=== PATIENT | female | born 1995 | race Caucasian/White ===

== ENCOUNTER 2018-02-04 21:32 | Inpatient (IN) | payer BC ==
[~2018-02-04] VITALS: Ht 154.9 cm; Wt 58.5 kg
[2018-02-04] MEDS ORDERED: IBUPROFEN 600 MG TAB PO STA (22:10)
[2018-02-04] MEDS ORDERED: CEFTRIAXONE SOD INJ 1 GM ADDVIAL IV STA (22:10)
[2018-02-04] MEDS ORDERED: SODIUM CHLORIDE 0.9% 1000ML 1,000 ML IV STA (22:10)
[2018-02-04 22:55] LABS: HEMOGLOBIN 13.5 g/dL (12.0-16.0); MEAN CELL VOLUME 85.7 fL (80-100); MEAN CORPUSCULAR HEMOGLOBIN 29.7 pg (25-34); MEAN CORPUSCULAR HGB CONC 34.6 g/dl (32-36); MEAN PLATELET VOLUME 8.9 fL (7.4-10.4); PLATELET COUNT 293 K/uL (130-400); RED CELL DISTRIBUTION WIDTH CV 12.7 % (11.5-14.5); RED CELL DISTRIBUTION WIDTH SD 40.1 fL (36.4-46.3); WHITE BLOOD COUNT 30.99 K/uL (4.8-10.8)
[2018-02-04 23:02] LABS: ALBUMIN 3.7 gm/dl (3.4-5.0); CREATININE 0.9 mg/dl (0.60-1.20); POTASSIUM 2.9 mmol/L (3.5-5.1)
[2018-02-04 23:04] LABS: TOTAL PROTEIN 7.7 gm/dl (6.4-8.2)
[2018-02-04] MEDS ORDERED: POTASSIUM CHLORIDE 10 MEQ TABCR PO STA (23:06)
--- NOTE | 2018-02-04 23:07 | DIAGNOSTIC IMAGING REPORT ---
ULTRASOUND KIDNEYS AND BLADDER CLINICAL HISTORY: Left flank pain. Urinary tract infection. COMPARISON STUDY: No priors. TECHNIQUE: Real-time, grayscale, and color flow sonography of the kidneys and bladder is performed. Images are reviewed in the transverse and longitudinal planes. FINDINGS: Kidneys: The kidneys are normal in size and echotexture. The right kidney measures 13.2 cm in length and the left kidney measures 13.1 cm in length. There is no hydronephrosis. No shadowing renal calculi are identified. There is no sonographic evidence of contour deforming renal mass lesion. No perinephric fluid is identified. Bladder: The bladder is partially decompressed and grossly normal in appearance. Only the left ureteral jet was seen. IMPRESSION: Unremarkable sonographic assessment of the kidneys and bladder. Electronically signed by: Prem Giordano M.D. 02/04/2018 11:05 PM Dictated Date/Time: 02/04/2018 11:04 PM
[2018-02-04 23:08] LABS: BASO ABS # 0.01 K/uL (0-0.2); IG# 0.15 K/uL (0.00-0.02); LYMPH % 2.7 %; LYMPH ABS # 0.85 K/uL (1.2-3.4); MONO % 11.2 %; MONO ABS # 3.47 K/uL (0.11-0.59); NEUT % 85.6 %; NEUT ABS # 26.51 K/uL (1.4-6.5)
[2018-02-04] MEDS ORDERED: MAGNESIUM SULFATE 1GM / D5W 1 GM BAG IV STA (23:29)
[2018-02-04] MEDS ORDERED: SERT50TA PO (23:52)
[2018-02-04] MEDS ORDERED: SERT-234 PO (23:53)
[2018-02-05] MEDS ORDERED: MAGNESIUM SULFATE 1GM / D5W 100 ML IV STA (01:08)
[2018-02-05] MEDS ORDERED: ALUMINUM/MAGNESIUM/SIMETH (MAALOX MAX) 30 ML UDC PO PRN (01:15)
[2018-02-05] MEDS ORDERED: POLYETHYLENE (MIRALAX) 17 GM PACK PO PRN (01:15)
[2018-02-05] MEDS ORDERED: HEPARIN SOD 5000 UNIT/0.5 ML CARP SQ SCH (01:15)
[2018-02-05] MEDS ORDERED: MAGNESIUM HYDROXIDE SUSP 30 ML UDC PO PRN (01:15)
[2018-02-05] MEDS ORDERED: ZOLPIDEM TARTRATE 5 MG TAB PO PRN (01:15)
--- NOTE | 2018-02-05 01:39 | History and Physical ---
History & Physical Date & Time of Service: Feb 05, 2018 at 01:20 Chief Complaint: Fever 102.9, Left Side Pain Primary Care Physician: [facility] History of Present Illness Source: patient 22 y/o F Hx depression/anxiety. The pt developed L flank pain one day ago in addition to dysuria and fevers. She describes nausea but denies vomiting. She eventually presented to the ER where a temp of 39.1 was confirmed. Initial labs were notable for hypokalemia, hypomagnesemia and a WBC count of 31. Past Medical/Surgical History 1) Depression Family History No pertinent family history Social History Social alcohol - does not smoke - [employer] student Smoking Status: Never Smoker Allergies Coded Allergies: No Known Allergies (Unverified , 02/04/18) Home Medications Scheduled Sertraline (Zoloft), 150 MG PO DAILY Review of Systems Constitutional: + fever, + sweats Eyes: No worsening of vision ENT: No hearing loss, No unusual epistaxis, No nasal symptoms Respiratory: No cough, No sputum, No wheezing Cardiovascular: No chest pain, No PND Abdomen: + nausea, No pain, No vomiting Musculoskeletal: No joint pain Genitourinary - Female: + dysuria, + problem reported (Flank pain as above) Neurologic: No memory loss Psychiatric: No depression symptoms Endocrine: No fatigue Hematologic / Lymphatic: No abnormal bleeding/bruising Integumentary: No rash Allergic / Immunologic: No environmental allergies Physical Exam Vital Signs Date Time Temp Pulse Resp B/P (MAP) Pulse Ox O2 Delivery O2 Flow Rate FiO2 02/04/18 21:35 39.1 146 18 111/72 96 Room Air General Appearance: WD/WN, no apparent distress Head: normocephalic Eyes: normal inspection ENT: normal ENT inspection, pharynx normal Neck: supple Respiratory/Chest: chest non-tender, lungs clear, normal breath sounds Cardiovascular: regular rate, rhythm, no edema Abdomen/GI: normal bowel sounds, non tender, soft Back: normal inspection, no CVA tenderness Extremities/Musculoskelatal: normal inspection, no calf tenderness, normal capillary refill 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, no motor/sensory deficits, alert, oriented x 3 Skin: normal color Diagnostics Laboratory Results Results Past 24 Hours Test 02/04/18 22:30 02/04/18 23:11 Range/Units White Blood Count 30.99 4.8-10.8 K/uL Red Blood Count 4.55 4.2-5.4 M/uL Hemoglobin 13.5 12.0-16.0 g/dL Hematocrit 39.0 37-47 % Mean Corpuscular Volume 85.7 80-100 fL Mean Corpuscular Hemoglobin 29.7 25-34 pg Mean Corpuscular Hemoglobin Concent 34.6 32-36 g/dl Platelet Count 293 130-400 K/uL Mean Platelet Volume 8.9 7.4-10.4 fL Neutrophils (%) (Auto) 85.6 % Lymphocytes (%) (Auto) 2.7 % Monocytes (%) (Auto) 11.2 % Eosinophils (%) (Auto) 0.0 % Basophils (%) (Auto) 0.0 % Neutrophils # (Auto) 26.51 1.4-6.5 K/uL Lymphocytes # (Auto) 0.85 1.2-3.4 K/uL Monocytes # (Auto) 3.47 0.11-0.59 K/uL Eosinophils # (Auto) 0.00 0-0.5 K/uL Basophils # (Auto) 0.01 0-0.2 K/uL RDW Standard Deviation 40.1 36.4-46.3 fL RDW Coefficient of Variation 12.7 11.5-14.5 % Immature Granulocyte % (Auto) 0.5 % Immature Granulocyte # (Auto) 0.15 0.00-0.02 K/uL Sodium Level 136 136-145 mmol/L Potassium Level 2.9 3.5-5.1 mmol/L Chloride Level 106 98-107 mmol/L Carbon Dioxide Level 22 21-32 mmol/L Anion Gap 8.0 3-11 mmol/L Blood Urea Nitrogen 8 7-18 mg/dl Creatinine 0.90 0.60-1.20 mg/dl Est Creatinine Clear Calc Drug Dose 80.2 ml/min Estimated GFR () 105.2 Estimated GFR (Non- 90.8 BUN/Creatinine Ratio 8.4 10-20 Random Glucose 144 70-99 mg/dl Calcium Level 9.0 8.5-10.1 mg/dl Magnesium Level 1.7 1.8-2.4 mg/dl Total Bilirubin 1.9 0.2-1 mg/dl Direct Bilirubin 0.3 0-0.2 mg/dl Aspartate Amino Transf (AST/SGOT) 10 15-37 U/L Alanine Aminotransferase (ALT/SGPT) 14 12-78 U/L Alkaline Phosphatase 57 45-117 U/L Total Protein 7.7 6.4-8.2 gm/dl Albumin 3.7 3.4-5.0 gm/dl Bedside Lactic Acid Venous 1.00 0.90-1.70 mmol/L Microbiology Results 02/04/18 Blood Culture, Received Pending 02/04/18 Blood Culture, Received Pending Diagnostic Radiology Renal US: Unremarkable sonographic assessment of the kidneys and bladder. Impression Assessment and Plan 22 y/o F Hx depression/anxiety. The pt developed L flank pain one day ago in addition to dysuria and fevers. She describes nausea but denies vomiting. She eventually presented to the ER where a temp of 39.1 was confirmed. Initial labs were notable for hypokalemia, hypomagnesemia and a WBC count of 31. 1) Pyelonephritis - high fever and impressive leukocytosis. Clinically her condition is fair and DC could be considered in the afternoon provided she is improving and tolerating PO. Culture results are pending. Placed on Ceftriaxone. 2) Hypokalemia, hypomag - repleted. Full code - SCDs Total time for this admit including review of labs, meds, imaging, records - discussion with pt and ER attending - 33 min VTE Prophylaxis Will order VTE Prophylaxis: Yes Reason for no VTE drug order: Treatment not indicated Reason no Mechanical VTE Order: Treatment not indicated
[2018-02-05] MEDS: POTASSIUM CHLR 10 MEQ / WTR 100 ML IV SCH ×2 (02:55→04:51)
[2018-02-05] MEDS: NSS + 20MEQ KCL 1000ML 1,000 ML IV SCH ×3 (02:56→12:55)
[2018-02-05 03:06] VITALS: BP 97/62; PULSE 111; TEMP 37.6; Ht 154.9 cm; Wt 58.5 kg
[2018-02-05] MEDS: ONDANSETRON INJ 2 MG/ML 2 ML VIAL IV PRN (05:12)
--- NOTE | 2018-02-05 05:13 | EMERGENCY ROOM VISIT NOTE ---
History First contact with patient: 22:02 Chief Complaint: FEVER Stated Complaint: PYELONEPHRITIS History of Present Illness The patient is a 22 year old female who presents to the Emergency Room with complaints of nausea, fever, urinary symptoms for the past few days who developed a fever today. No recent antibiotics. Patient denies chest pain, dyspnea, cough, congestion, vomiting, diarrhea, vaginal itching or discharge or risk for STI's. Patient is tolerating fluids but has a lack of appetite. Review of Systems An 10 system review of systems was completed with positives and pertinent negatives listed in the HPI. Past Medical/Surgical History Medical Problems: (1) Pyelonephritis Social History Smoking Status: Never Smoker Smokeless Tobacco Use: No Drug Use: none Marital Status: single Occupation Status: [employer] student Current/Historical Medications Scheduled Sertraline (Zoloft), 150 MG PO DAILY Physical Exam Vital Signs Date Time Temp Pulse Resp B/P (MAP) Pulse Ox O2 Delivery O2 Flow Rate FiO2 02/04/18 21:35 39.1 146 18 111/72 96 Room Air Physical Exam VITALS: Vitals are noted on the nurse's note and reviewed by myself. Vital signs febrile and tachycardic. GENERAL: Pleasant female, in no acute distress, nondiaphoretic, well-developed well-nourished. SKIN: The skin was without rashes, erythema, edema, or bruising. There is no tenting of the skin. Capillary reflex less than 2 seconds. HEAD: Normocephalic atraumatic. EARS: External auditory canals clear, tympanic membranes pearly moura without erythema or effusion bilaterally. EYES: Pupils equal round and reactive to light and accommodation. Conjunctivae without injection, sclerae without icterus. Extraocular movements intact. NOSE: Patent, turbinates without inflammation or discharge. MOUTH: Mucous membranes mildly dry. Pharynx without erythema or exudate. Uvula midline. Airway patent. Tongue does not deviate. NECK: Supple without nuchal rigidity. No lymphadenopathy. No thyromegaly. Cervical spine is nontender. No JVD. HEART: Regular rate and rhythm without murmurs gallops or rubs. LUNGS: Clear to auscultation bilaterally without wheezes, rales or rhonchi. No retractions or accessory muscle use. ABDOMEN: Positive bowel sounds x 4. Normal tympanic percussion. Soft, nontender, without masses or organomegaly. Castorena sign negative. No guarding or rebound tenderness. Left CVA tenderness MUSCULOSKELETAL: No muscle atrophy, erythema, or edema noted. NEURO: Patient was alert and oriented to person place and time. Normal sensation to light and sharp touch. No focal neurological deficits. Medical Decision & Procedures Laboratory Results 02/04/18 22:30 Red Blood Count 4.55, Mean Corpuscular Volume 85.7, Mean Corpuscular Hemoglobin 29.7, Mean Corpuscular Hemoglobin Concent 34.6, Mean Platelet Volume 8.9, Neutrophils (%) (Auto) 85.6, Lymphocytes (%) (Auto) 2.7, Monocytes (%) (Auto) 11.2, Eosinophils (%) (Auto) 0.0, Basophils (%) (Auto) 0.0, Neutrophils # (Auto ) 26.51, Lymphocytes # (Auto) 0.85, Monocytes # (Auto) 3.47, Eosinophils # (Auto ) 0.00, Basophils # (Auto) 0.01 02/04/18 22:30 Test 02/04/18 00:00 02/04/18 22:30 02/04/18 23:11 Urine Color YELLOW Urine Appearance CLOUDY (CLEAR) Urine pH 7.0 (4.5-7.5) Urine Specific [place] 1.008 (1.000-1.030) Urine Protein 1+ (NEG) Urine Glucose (UA) NEG (NEG) Urine Ketones TRACE (NEG) Urine Occult Blood 1+ (NEG) Urine Nitrite NEG (NEG) Urine Bilirubin NEG (NEG) Urine Urobilinogen NEG (NEG) Urine Leukocyte Esterase LARGE (NEG) Urine WBC (Auto) >30 /hpf (0-5) Urine RBC (Auto) 0-4 /hpf (0-4) Urine Hyaline Casts (Auto) 1-5 /lpf (0-5) Urine Epithelial Cells (Auto) >30 /lpf (0-5) Urine Bacteria (Auto) 2+ (NEG) Urine Test NEG (NEG) White Blood Count 30.99 K/uL (4.8-10.8) Red Blood Count 4.55 M/uL (4.2-5.4) Hemoglobin 13.5 g/dL (12.0-16.0) Hematocrit 39.0 % (37-47) Mean Corpuscular Volume 85.7 fL (80-100) Mean Corpuscular Hemoglobin 29.7 pg (25-34) Mean Corpuscular Hemoglobin Concent 34.6 g/dl (32-36) Platelet Count 293 K/uL (130-400) Mean Platelet Volume 8.9 fL (7.4-10.4) Neutrophils (%) (Auto) 85.6 % Lymphocytes (%) (Auto) 2.7 % Monocytes (%) (Auto) 11.2 % Eosinophils (%) (Auto) 0.0 % Basophils (%) (Auto) 0.0 % Neutrophils # (Auto) 26.51 K/uL (1.4-6.5) Lymphocytes # (Auto) 0.85 K/uL (1.2-3.4) Monocytes # (Auto) 3.47 K/uL (0.11-0.59) Eosinophils # (Auto) 0.00 K/uL (0-0.5) Basophils # (Auto) 0.01 K/uL (0-0.2) RDW Standard Deviation 40.1 fL (36.4-46.3) RDW Coefficient of Variation 12.7 % (11.5-14.5) Immature Granulocyte % (Auto) 0.5 % Immature Granulocyte # (Auto) 0.15 K/uL (0.00-0.02) Anion Gap 8.0 mmol/L (3-11) Est Creatinine Clear Calc Drug Dose 80.2 ml/min Estimated GFR () 105.2 Estimated GFR (Non- 90.8 BUN/Creatinine Ratio 8.4 (10-20) Calcium Level 9.0 mg/dl (8.5-10.1) Magnesium Level 1.7 mg/dl (1.8-2.4) Total Bilirubin 1.9 mg/dl (0.2-1) Direct Bilirubin 0.3 mg/dl (0-0.2) Aspartate Amino Transf (AST/SGOT) 10 U/L (15-37) Alanine Aminotransferase (ALT/SGPT) 14 U/L (12-78) Alkaline Phosphatase 57 U/L (45-117) Total Protein 7.7 gm/dl (6.4-8.2) Albumin 3.7 gm/dl (3.4-5.0) Bedside Lactic Acid Venous 1.00 mmol/L (0.90-1.70) Medications Administered Medications (Trade) Dose Ordered Sig/Terrance Route Start Time Stop Time Status Last Admin Dose Admin Ibuprofen (Motrin Tab) 600 mg NOW STAT PO 02/04/18 22:10 02/04/18 22:12 DC 02/04/18 22:28 600 MG Ceftriaxone Sodium (Rocephin Inj) 1 gm NOW STAT IV 02/04/18 22:10 02/04/18 22:12 DC 02/04/18 22:28 1 GM Sodium Chloride 1,000 ml @ 999 mls/hr Q1H1M STAT IV 02/04/18 22:10 02/04/18 23:10 DC 02/04/18 22:28 999 MLS/HR Potassium Chloride (Klor-Con M10) 40 meq NOW STAT PO 02/04/18 23:06 02/04/18 23:08 DC 02/04/18 23:25 40 MEQ Magnesium Sulfate (Magnesium Sulfate 1gm / D5W) 1 gm NOW STAT IV 02/04/18 23:29 02/04/18 23:30 DC 02/04/18 23:36 1 GM ED Course Prior records/ancillary studies reviewed. Triage Nursing notes reviewed. Additional history obtained from friends. The patient's history was concerning for fever. Differential diagnosis: Etiologies such as viral syndrome, otitis, pharyngitis, pneumonia, influenza, meningitis, urinary tract infection, sepsis, bacteremia, as well as others were entertained. Physical examination: Patient is alert and tolerating fluids ER treatment provided: IV fluids, Rocephin, Motrin, potassium, magnesium On reassessment the patient felt better. Diagnostics interpreted by me: The labs revealed leukocytosis of 31,000, hypokalemia, hypomagnesia, urine concerning for infection sent for culture. Negative hCG. Blood cultures pending. Lactic is 1 Imaging studies: Renal ultrasound negative for acute findings per stat radiology Consultation: A consultation was placed with hospitalist, Dr. Peoples. The case was discussed and diagnostics were reviewed. The patient was evaluated in the ER for further treatment. This appears to be consistent with pyelonephritis. Patient will be evaluated by medicine. She started on antibiotics. Urine culture was sent. Blood cultures pending. Her white count was 31,000. Fever was 39.3. She was not . She did not have acute abdomen on exam. By the evaluation outlined above emergent etiologies such as otitis, pharyngitis, pneumonia, meningitis, sepsis, bacteremia, as well as others were deemed relatively unlikely. The pt informed about the findings as listed above. All questions were answered and pleased with the treatment. Case reviewed with my attending The chart was completed utilizing [employer] Speech voice recognition software. Grammatical errors, random word insertions, pronoun errors, and incomplete sentences are an occassional consequence of this system due to software limitations, ambient noise, and hardware issues. Any formal questions or concerns about the content, text, or information contained within the body of this dictation should be directly addressed to the physician state tested nursing assistant for clarification. Medical Decision As above Medication Reconcilliation Current Medication List: was personally reviewed by me Blood Pressure Screening Patient's blood pressure: Normal blood pressure Impression Primary Impression: Pyelonephritis Additional Impression: SIRS (systemic inflammatory response syndrome) Departure Information Dispostion Admitted as an inpatient Condition GOOD Referrals [facility] (PCP) Forms HOME CARE DOCUMENTATION FORM, IMPORTANT VISIT INFORMATION Patient Instructions [facility] Problem Qualifiers
[2018-02-05 07:20] LABS: HEMATOCRIT 32.8 % (37-47); HEMOGLOBIN 11.1 g/dL (12.0-16.0); MEAN CELL VOLUME 87.2 fL (80-100); MEAN CORPUSCULAR HEMOGLOBIN 29.5 pg (25-34); MEAN CORPUSCULAR HGB CONC 33.8 g/dl (32-36); PLATELET COUNT 255 K/uL (130-400); RED CELL DISTRIBUTION WIDTH SD 41.6 fL (36.4-46.3); WHITE BLOOD COUNT 26.89 K/uL (4.8-10.8)
[2018-02-05] MEDS: SERTRALINE HCL 100 MG TAB PO SCH (07:59)
[2018-02-05 08:08] LABS: CALCIUM 7.6 mg/dl (8.5-10.1); CREATININE 0.97 mg/dl (0.60-1.20); POTASSIUM 3.6 mmol/L (3.5-5.1)
[2018-02-05 08:22] VITALS: BP 94/62; PULSE 98; TEMP 37.1; O2SAT 96
[2018-02-05 12:55] VITALS: TEMP 37.9
[2018-02-05] MEDS: ACETAMINOPHEN 325 MG TAB PO PRN ×2 (12:55→20:42)
--- NOTE | 2018-02-05 15:06 | Family Medicine Progress Note ---
Progress Note Date of Service Feb 05, 2018. Subjective No overnight events. Pt is tolerating antibiotic therapy well also IV fluids. Parents are at bedside, discussed extensively patient's improving clinical status having come in meeting sepsis criteria with pyelonephritis as focus of infection. Pt concerned about her finals upcoming. Discussed need for continued monitoring. Pt's mother also endorsed a history of repaired atrial septal defect and concern for cardiac complication. Pt no longer receives regular follow up for this, but does take antibiotic ppx before dental procedures. Pt denies chest pain, difficulty breathing, headache, diarrhea, lightheadedness. Does endorse mild left flank pain, but states overall she feels much better. ROS See HPI for pertinent positives and negatives. Objective Physical Exam Notes: GENERAL: Awake, alert, well-appearing, in no distress HENT: Normocephalic, atraumatic. EYES: Normal conjunctiva. Sclera non-icteric. NECK: Supple. FROM. No JVD. RESPIRATORY: Clear to auscultation. CARDIAC: Regular rate, normal rhythm. Extremities warm and well perfused. Pulses equal. ABDOMEN: Soft, non-distended. Mild tenderness to palpation over left flank. No rebound or guarding. No masses. LOWER EXTREMITIES: Calves are equal size bilaterally and non-tender. No edema. No discoloration. NEURO: No motor deficits noted. SKIN: No rash or jaundice noted. Assessment and Plan 22F here for management of sepsis and pyelonephritis with PMH of depression/ anxiety Assessment 1. Sepsis 2. Pyelonephritis 3. Anxiety/depression 4. Hypokalemia, hypomagnesemia Plan 1. 2 doses of Rocephin will be completed tonight. Ordered to start Cipro 500mg BID tomorrow for a total treatment of 14 days. 2. Continue hydration fluids NSS + 20 meq K @ 100ml/hr. 3. Continue Zoloft 150mg daily. 4. Replete elytes. VTE PPX: Heparin 5000units SQ q12h Dispo: Follow up with Dr. Princess Pacheco in [facility] will be arranged for next week. Current Inpatient Medications Medications (Trade) Dose Ordered Sig/Terrance Route Start Time Stop Time Status Last Admin Dose Admin Ceftriaxone Sodium 1 gm/ Dextrose 50 ml @ 100 mls/hr Q24H IV 02/05/18 22:00 02/14/18 21:59 Acetaminophen (Tylenol Tab) 650 mg Q4H PRN PO 02/05/18 01:15 03/07/18 01:14 02/05/18 12:55 650 MG Al Hydrox/Mg Hydrox/Simethicone (Maalox Max Susp) 15 ml Q4H PRN PO 02/05/18 01:15 03/07/18 01:14 Magnesium Hydroxide (Milk Of Magnesia Susp) 30 ml Q6H PRN PO 02/05/18 01:15 03/07/18 01:14 Polyethylene (Miralax Powder Packet) 17 gm DAILY PRN PO 02/05/18 01:15 03/07/18 01:14 Zolpidem Tartrate (Ambien Tab) 5 mg HSZ PRN PO 02/05/18 01:15 03/07/18 01:14 Ondansetron HCl (Zofran Inj) 4 mg Q6H PRN IV 02/05/18 01:15 03/07/18 01:14 02/05/18 05:12 4 MG Potassium Chloride/Sodium Chloride 1,000 ml @ 100 mls/hr Q10H IV 02/05/18 02:30 02/05/18 17:53 02/05/18 12:55 100 MLS/HR Sertraline HCl (Zoloft Tab) 150 mg DAILY PO 02/05/18 09:00 03/07/18 08:59 02/05/18 07:59 150 MG Ciprofloxacin (Cipro Tab) 500 mg BID PO 02/06/18 09:00 02/16/18 08:59 Date Time Temp Pulse Resp B/P (MAP) Pulse Ox O2 Delivery O2 Flow Rate FiO2 02/05/18 16:25 37.3 104 20 93/59 (70) 96 Room Air 02/05/18 12:55 37.9 02/05/18 08:22 37.1 98 18 94/62 (73) 96 02/05/18 08:00 Room Air 02/05/18 03:06 37.6 111 18 97/62 Room Air 02/05/18 01:28 37.2 113 18 113/63 97 Room Air 02/04/18 21:35 39.1 146 18 111/72 96 Room Air 02/05/18 07:10 02/05/18 07:10 Test 02/04/18 22:30 02/04/18 23:11 02/05/18 07:10 Immature Granulocyte % (Auto) 0.5 % White Blood Count 30.99 K/uL (4.8-10.8) Red Blood Count 4.55 M/uL (4.2-5.4) 3.76 M/uL (4.2-5.4) Hemoglobin 13.5 g/dL (12.0-16.0) Hematocrit 39.0 % (37-47) Mean Corpuscular Volume 85.7 fL (80-100) 87.2 fL (80-100) Mean Corpuscular Hemoglobin 29.7 pg (25-34) 29.5 pg (25-34) Mean Corpuscular Hemoglobin Concent 34.6 g/dl (32-36) 33.8 g/dl (32-36) Platelet Count 293 K/uL (130-400) Mean Platelet Volume 8.9 fL (7.4-10.4) 9.0 fL (7.4-10.4) Neutrophils (%) (Auto) 85.6 % Lymphocytes (%) (Auto) 2.7 % Monocytes (%) (Auto) 11.2 % Eosinophils (%) (Auto) 0.0 % Basophils (%) (Auto) 0.0 % Neutrophils # (Auto) 26.51 K/uL (1.4-6.5) Lymphocytes # (Auto) 0.85 K/uL (1.2-3.4) Monocytes # (Auto) 3.47 K/uL (0.11-0.59) Eosinophils # (Auto) 0.00 K/uL (0-0.5) Basophils # (Auto) 0.01 K/uL (0-0.2) Immature Granulocyte # (Auto) 0.15 K/uL (0.00-0.02) Total Bilirubin 1.9 mg/dl (0.2-1) Direct Bilirubin 0.3 mg/dl (0-0.2) Aspartate Amino Transf (AST/SGOT) 10 U/L (15-37) Alanine Aminotransferase (ALT/SGPT) 14 U/L (12-78) Alkaline Phosphatase 57 U/L (45-117) Total Protein 7.7 gm/dl (6.4-8.2) Albumin 3.7 gm/dl (3.4-5.0) Bedside Lactic Acid Venous 1.00 mmol/L (0.90-1.70) RDW Standard Deviation 41.6 fL (36.4-46.3) RDW Coefficient of Variation 13.0 % (11.5-14.5) Anion Gap 5.0 mmol/L (3-11) Est Creatinine Clear Calc Drug Dose 74.8 ml/min Estimated GFR () 96.1 Estimated GFR (Non- 82.9 BUN/Creatinine Ratio 9.1 (10-20) Calcium Level 7.6 mg/dl (8.5-10.1) Magnesium Level 2.1 mg/dl (1.8-2.4) Continued [facility] stay due to: multiple IV medications needed Discharge planning: home Resident Tracking Resident Involvement: Resident Care Provided Care Provided: Adult Hospital Medicine Assessment/Plan Resident Physician Supervision Note: I was present with Dr. Pacheco during the history and exam. I discussed the case with the resident and agree with the findings and plan as documented in the note. Any exceptions or clarifications are listed here: Pt reports considerable improvement in malaise and flank pain which is now described as mild, and has been afebrile since last evening (2100). Discussed briefly ramifications of admission on academics (finals week) and will provide documentation if needed. Would continue IV abx one more day and transition to PO cipro in AM, as cultures should be back then as well.
[2018-02-05 16:25] VITALS: BP 93/59; PULSE 104; TEMP 37.3; O2SAT 96
[2018-02-05 20:32] VITALS: BP 85/45; PULSE 114; TEMP 39; O2SAT 97
[2018-02-05] MEDS ORDERED: SODIUM CHLORIDE 0.9% 1000ML 1,000 ML IV SCH (21:15)
[2018-02-05] MEDS ORDERED: CEFTRIAXONE SOD INJ 1 GM in DEXTROSE 5% ADD-VANTAGE 50ML 50 ML IV SCH (22:00)
[2018-02-05 23:16] VITALS: BP 95/57; PULSE 112; TEMP 38.1; O2SAT 97
[2018-02-06] VITALS (12 sets, daily range): BP systolic 85–112; BP diastolic 47–73; PULSE 97–110; TEMP 37.3–38.6; O2SAT 91–97
[2018-02-06] MEDS: ACETAMINOPHEN 325 MG TAB PO PRN ×3 (00:54→13:20)
[2018-02-06] MEDS: CIPROFLOXACIN 500 MG TAB PO SCH ×2 (07:30→18:12)
[2018-02-06] MEDS: SERTRALINE HCL 100 MG TAB PO SCH (07:30)
[2018-02-06 07:51] LABS: BASO % 0.1 %; BASO ABS # 0.01 K/uL (0-0.2); HEMOGLOBIN 10.7 g/dL (12.0-16.0); IG# 0.04 K/uL (0.00-0.02); LYMPH % 6.6 %; LYMPH ABS # 1.02 K/uL (1.2-3.4); MEAN CELL VOLUME 87.4 fL (80-100); MEAN CORPUSCULAR HEMOGLOBIN 29.2 pg (25-34); MEAN CORPUSCULAR HGB CONC 33.4 g/dl (32-36); MEAN PLATELET VOLUME 9.2 fL (7.4-10.4); MONO % 10.6 %; MONO ABS # 1.64 K/uL (0.11-0.59); NEUT % 82.4 %; NEUT ABS # 12.83 K/uL (1.4-6.5); PLATELET COUNT 248 K/uL (130-400); RED CELL DISTRIBUTION WIDTH CV 13.2 % (11.5-14.5); RED CELL DISTRIBUTION WIDTH SD 42.7 fL (36.4-46.3); WHITE BLOOD COUNT 15.54 K/uL (4.8-10.8)
[2018-02-06 08:00] LABS: ALBUMIN 2.4 gm/dl (3.4-5.0); CALCIUM 7.8 mg/dl (8.5-10.1); CREATININE 0.63 mg/dl (0.60-1.20); POTASSIUM 3.8 mmol/L (3.5-5.1); TOTAL PROTEIN 5.9 gm/dl (6.4-8.2)
[2018-02-06] MEDS ORDERED: NSS + 20MEQ KCL 1000ML 1,000 ML IV SCH (10:00)
--- NOTE | 2018-02-06 10:41 | Family Medicine Progress Note ---
Progress Note Date of Service Feb 06, 2018. Subjective Febrile up to 39 overnight, responded to tylenol. Fluids restarted. Pt denies any pain in abdomen, ambulating without lightheadedness. Occasional headache when she stands up, but that subsides within minutes. No dysuria. Resident Tracking Resident Involvement: Resident Care Provided Care Provided: [facility] Assessment/Plan Resident Physician Supervision Note: I was present with Dr. Pacheco during the history and exam. I discussed the case with the resident and agree with the findings and plan as documented in the note. Any exceptions or clarifications are listed here: Pt states that she is feeling more fatigued today, and that she is more nauseated than last night. That said, she also states that she has less pain in the flank and no abdominal pain. She has been complaining of intermittent fever/ chills improved w/ tylenol. Family is somewhat uncomfortable with her going back to her apartment (roommates only) tonight while she is unwell, but is willing if she passes PO trial w/ zofran and can ambulate around the room. Will trial the former with dinner and dispo either tonight or tomorrow.
[2018-02-06] MEDS: ONDANSETRON INJ 2 MG/ML 2 ML VIAL IV PRN (15:56)
[2018-02-06] MEDS ORDERED: ACETAMINOPHEN 500 MG TAB PO PRN (17:00)
[2018-02-06] MEDS ORDERED: CPR500 PO (18:30)
--- NOTE | 2018-02-06 18:35 | Discharge Instructions ---
Discharge Instructions Date of Service Feb 06, 2018. Admission Reason for Admission: Pyelonephritis Discharge Discharge Diagnosis / Problem: Pyelonephritis Discharge Goals Goal(s): Decrease discomfort, Improve function, Increase independence, Improve disease control, Therapeutic intervention Activity Recommendations Activity Limitations: per Instructions/Follow-up section . Instructions / Follow-Up Instructions / Follow-Up You were admitted due to an infection in your kidneys called pyelonephritis. We started you on antibiotics as well as IV fluids and tylenol for your fever.. Should you have a fever temperature >101, please take tylenol. Please do not take more than the maximum dose, as labeled on the bottle. Do not take anymore tylenol TODAY. You can recheck a temperature tomorrow. Remember that fevers are your body's natural response to healing, so treat only if >101 degrees. Continue your tablet antibiotic ciprofloxacin for 5 more days. This has been sent to your pharmacy. Please stay home, rest, and drink plenty of fluids, which in your case is 65 ounces of water daily. Please follow up with your primary care provider in 3-4 days from discharge. You are welcome to follow up with me in the office any time as well. Be well A Tara Current Hospital Diet Patient's current hospital diet: Regular Diet Discharge Diet Recommended Diet: Regular Diet Pending Studies Studies pending at discharge: yes List of pending studies: E coli sensitivities Medical Emergencies . Who to Call and When: Medical Emergencies: If at any time you feel your situation is an emergency, please call 911 immediately. . Non-Emergent Contact Non-Emergency issues call your: Primary Care Provider . . "Provider Documentation" section prepared by Princess Pacheco. .
--- NOTE | 2018-02-06 18:47 | Discharge Summary ---
Discharge Summary Date of Service Feb 06, 2018. Discharge Summary Admission Date: Feb 05, 2018 at 01:16 Discharge Date: Feb 06, 2018 Discharge Disposition: Home Principal Diagnosis: Pyelonephritis Problems/Secondary Diagnoses: Sepsis Medication Reconciliation New Medications: Ciprofloxacin (Ciprofloxacin HCl) 500 Mg Tab 500 MG PO BID for 5 Days, #10 TAB Continued Medications: Sertraline (Zoloft) 100 Mg Tab 150 MG PO DAILY, TAB Discharge Exam Pt is stable and feeling much improved on day of discharge. WBC improving, was 30 on admission. This morning is 15. Fevers controlled overnight with tylenol. Pt denies chest pain, difficulty breathing, headache, diarrhea, lightheadedness. Does endorse mild left flank pain, but states overall she feels much better. ROS See HPI for pertinent positives and negatives. Last Vital Signs Documentation Date Time Temp Pulse Resp B/P (MAP) Pulse Ox O2 Delivery O2 Flow Rate FiO2 02/06/18 18:16 37.9 97 16 91 Room Air 02/06/18 15:31 109/73 (85) Objective Physical Exam Notes: GENERAL: Awake, alert, well-appearing, in no distress HENT: Normocephalic, atraumatic. EYES: Normal conjunctiva. Sclera non-icteric. NECK: Supple. FROM. No JVD. RESPIRATORY: Clear to auscultation. CARDIAC: Regular rate, normal rhythm. Extremities warm and well perfused. Pulses equal. ABDOMEN: Soft, non-distended. Mild tenderness to palpation over left flank. No rebound or guarding. No masses. LOWER EXTREMITIES: Calves are equal size bilaterally and non-tender. No edema. No discoloration. NEURO: No motor deficits noted. SKIN: No rash or jaundice noted. 02/06/18 06:58 Red Blood Count 3.66, Mean Corpuscular Volume 87.4, Mean Corpuscular Hemoglobin 29.2, Mean Corpuscular Hemoglobin Concent 33.4, Mean Platelet Volume 9.2, Neutrophils (%) (Auto) 82.4, Lymphocytes (%) (Auto) 6.6, Monocytes (%) (Auto) 10.6, Eosinophils (%) (Auto) 0.0, Basophils (%) (Auto) 0.1, Neutrophils # (Auto ) 12.83, Lymphocytes # (Auto) 1.02, Monocytes # (Auto) 1.64, Eosinophils # (Auto ) 0.00, Basophils # (Auto) 0.01 02/06/18 06:58 Test 02/06/18 06:58 White Blood Count 15.54 K/uL (4.8-10.8) Red Blood Count 3.66 M/uL (4.2-5.4) Hemoglobin 10.7 g/dL (12.0-16.0) Hematocrit 32.0 % (37-47) Mean Corpuscular Volume 87.4 fL (80-100) Mean Corpuscular Hemoglobin 29.2 pg (25-34) Mean Corpuscular Hemoglobin Concent 33.4 g/dl (32-36) Platelet Count 248 K/uL (130-400) Mean Platelet Volume 9.2 fL (7.4-10.4) Neutrophils (%) (Auto) 82.4 % Lymphocytes (%) (Auto) 6.6 % Monocytes (%) (Auto) 10.6 % Eosinophils (%) (Auto) 0.0 % Basophils (%) (Auto) 0.1 % Neutrophils # (Auto) 12.83 K/uL (1.4-6.5) Lymphocytes # (Auto) 1.02 K/uL (1.2-3.4) Monocytes # (Auto) 1.64 K/uL (0.11-0.59) Eosinophils # (Auto) 0.00 K/uL (0-0.5) Basophils # (Auto) 0.01 K/uL (0-0.2) RDW Standard Deviation 42.7 fL (36.4-46.3) RDW Coefficient of Variation 13.2 % (11.5-14.5) Immature Granulocyte % (Auto) 0.3 % Immature Granulocyte # (Auto) 0.04 K/uL (0.00-0.02) Anion Gap 5.0 mmol/L (3-11) Est Creatinine Clear Calc Drug Dose 115.1 ml/min Estimated GFR () 147.6 Estimated GFR (Non- 127.3 BUN/Creatinine Ratio 10.4 (10-20) Calcium Level 7.8 mg/dl (8.5-10.1) Total Bilirubin 0.6 mg/dl (0.2-1) Aspartate Amino Transf (AST/SGOT) 13 U/L (15-37) Alanine Aminotransferase (ALT/SGPT) 21 U/L (12-78) Alkaline Phosphatase 64 U/L (45-117) Total Protein 5.9 gm/dl (6.4-8.2) Albumin 2.4 gm/dl (3.4-5.0) Globulin 3.5 gm/dl (2.5-4.0) Albumin/Globulin Ratio 0.7 (0.9-2) Hospital Course Ms. Barajas came to the ED late on 02/04, and was admitted overnight due to fever, flank pain and evidence of pyelonephritis. Pt's WBC was 30 at the time, and tachycardic and therefore met SIRS criteria. Renal ultrasound did not find any obstruction. Pt was treated with IV antibiotics ceftriaxone, and then transitioned to Cipro PO today. Pt has spiked fevers, usually at night, and maintenance fluids have kept her blood pressure mostly over 90s. She has experienced some nausea, which was treated with Zofran IV. She has tolerated a diet well here. Mother is involved and would like to bring her home to [place] for ongoing care at home. We think this is reasonable. She is to continue her PO Cipro 500 BID for 5 more days, to have completed 7 days of antibiotic therapy. Pt denies any recent antibiotic use in last three months, so while sensitivities are pending for her urine culture which grew E coli, I do not anticipate any resistance. Please continue tylenol PRN for fever >101, and plenty of fluids. Continue sertraline, no changes made to chronic meds. Total Time Spent: Greater than 30 minutes This includes examination of the patient, discharge planning, medication reconciliation, and communication with other providers. Discharge Instructions Please refer to the electronic Patient Visit Report (Discharge Instructions) for additional information. Additional Copies To [facility] Assessment/Plan Resident Physician Supervision Note: I was present with Dr. Pacheco during the history and exam. I discussed the case with the resident and agree with the findings and plan as documented in the note. Any exceptions or clarifications are listed here: Pt reports sx considerably improved with symptomatic intervention and feels comfortable to return home. Outpatient abx therapy as noted for pyelonephritis and close follow up with Dr. Pacheco in the outpatient setting.
== END 2018-02-06 19:15 | disposition home or self-care (01) | DRG 872 ==
LOC: C.EDB 21:34 → C.MS2W 02-05 01:16 → ENRESERV 02-05 01:37
PROVIDERS: ADMIT Internal Medicine; ATTEND Family Medicine
DX: A41.9 Sepsis, unspecified organism (principal); N12 Tubulo-interstitial nephritis, not specified as acute or chronic; B96.20 Unspecified Escherichia coli [E. coli] as the cause of diseases classified elsewhere; F41.9 Anxiety disorder, unspecified; F32.9 Major depressive disorder, single episode, unspecified; E87.6 Hypokalemia; E83.42 Hypomagnesemia; Z87.74 Personal history of (corrected) congenital malformations of heart and circulatory system; Z79.899 Other long term (current) drug therapy